=== PATIENT | male | born 1995 | race Caucasian/White ===

== ENCOUNTER 2017-10-21 09:16 | Day surgery (SDC) | payer OTHER ==
[~2017-10-21] VITALS: Ht 180.3 cm; Wt 59.0 kg
[2017-10-21 09:34] VITALS: BP 129/80; PULSE 62; TEMP 97.6
[2017-10-21] MEDS ORDERED: PRILOSEC 20MG20 MG PO (11:09)
[2017-10-21 11:15] VITALS: BP 128/91; PULSE 56; TEMP 97.5
[2017-10-21 11:30] VITALS: BP 114/78; PULSE 47
[2017-10-21 11:45] VITALS: BP 129/88; PULSE 65
[2017-10-21 12:00] VITALS: BP 118/74; PULSE 59
[2017-10-21 12:08] VITALS: BP 119/74; PULSE 65
== END 2017-10-21 12:50 | disposition home or self-care (01) ==
LOC: SDCO 09:16
DX: K21.0 Gastro-esophageal reflux disease with esophagitis (principal); K30 Functional dyspepsia; R10.84 Generalized abdominal pain; R61 Generalized hyperhidrosis; R63.4 Abnormal weight loss; R68.81 Early satiety
CPT/HCPCS: OP; J2250; J2405; J3010; J7030